=== PATIENT | female | born 1955 | race American Indian/Alaskan Native ===

== ENCOUNTER 2016-08-09 15:37 | Outpatient (CLI) | payer BC, OTHER | END 2016-08-09 15:38 | disposition home or self-care (01) | LOC: LABHHL 15:37 | PROVIDERS: ATTEND Surgery | DX: N63 Unspecified lump in breast (principal) | CPT/HCPCS: 88305; 88361 ==

== ENCOUNTER 2016-08-15 14:24 | Outpatient (CLI) | payer BC ==
--- NOTE | 2016-08-16 15:48 | Magnetic Resonance Report ---
BILATERAL BREAST MRI WITHOUT AND WITH CONTRAST: 08/15/16 14:24:00 CLINICAL: Status post right lumpectomy. Status post ultrasound guided needle biopsy of a right breast mass at 10 o'clock 3 cm from the nipple on 08/08/16 with pathologic diagnosis of invasive mammary carcinoma, [place] histologic grade 3 of 3. COMPARISON:08/08/16 Bilateral Mammogram. TECHNIQUE: Axial 1.0-mm T1 without, axial high resolution 2.0-mm T2 and axial 1.0-mm dynamic Vibrant high-resolution postcontrast T1 fat saturation sequences on a 1.5 Charissa magnet. The examination was performed with an 8 channel dedicated Sentin[place] breast coil. Post processing with CAD and subtraction was performed on an Nuxe[employer] workstation. 15.0 cc of Multihance was injected without incident for the contrast portion of the exam. Consent was obtained prior to the administration of the contrast. FINDINGS: Right: Minimal background parenchymal enhancement. Status post right partial mastectomy. An oval 3.2 x 2.8 x 2.4 cm upper outer mass 5.1 cm from the nipple corresponds to the recently biopsied mass. It demonstrates heterogeneous enhancement with mixed kinetics and 51% type III washout. The mass has a mildly irregular margin and contains a biopsy clip. No other mass or cyst enhancement of the right breast. Moderate skin thickening of the right breast. No suspicious right axillary or right internal mammary lymph nodes. Left: Minimal background parenchymal enhancement. An island of fibroglandular structures in the upper inner quadrant 9.8 cm from the nipple measures approximately 4.5 x 2.5 x 1.5 cm. It demonstrates heterogeneous enhancement with mixed kinetics and 8% type III washout. This island of fibroglandular structures correlates with a mammographic asymmetry which has been stable since 2013. No suspicious enhancement and no mass of the left breast. No suspicious left axillary or left internal mammary lymph nodes. IMPRESSION: 1. A 3.2 cm known recurrent right breast cancer. 2. No suspicious lymph nodes. 3. Negative left breast. RIGHT BI-RADS 6 -- Known Cancer LEFT BI-RADS 1 -- Negative
== END 2016-08-15 14:25 | disposition home or self-care (01) ==
LOC: SPVIMAG 14:24
PROVIDERS: ATTEND Surgery
DX: C50.911 Malignant neoplasm of unspecified site of right female breast (principal); N63 Unspecified lump in breast; Z90.11 Acquired absence of right breast and nipple; Z98.890 Other specified postprocedural states
CPT/HCPCS: 0159T; A9577; C8908; 77059

== ENCOUNTER 2016-10-09 15:36 | Outpatient (CLI) | payer BC | END 2016-10-09 15:37 | disposition home or self-care (01) | LOC: LABHHL 15:36 | PROVIDERS: ATTEND Surgery | DX: C50.411 Malignant neoplasm of upper-outer quadrant of right female breast (principal) | CPT/HCPCS: 88305 ==

== ENCOUNTER 2017-03-26 10:25 | Observation (INO) | payer BC, OTHER ==
--- NOTE | 2017-03-25 10:49 | Anesthesia Consultation ---
Anesthesia Consult and Med Hx Date of service: 03/25/17 - Airway Anesthetic Teeth Evaluation: Good ROM Head & Neck: Adequate Mental/Hyoid Distance: Adequate Mallampati Class: Class II Intubation Access Assessment: Probably Good - Pulmonary Exam CTA: Yes - Cardiac Exam Cardiac Exam: RRR - Pre-Operative Health Status ASA Pre-Surgery Classification: ASA2 Proposed Anesthetic Plan: General Nerve Block: PEC - Pulmonary Hx Smoking: No Hx Asthma: No Hx Sleep Apnea: No - Cardiovascular System Hx Hypertension: No (high cholesterol) Hx Heart Attack/AMI: No Hx Angina: No (hx of chest palpitation (20years ago)) Hx Heart Murmur: Yes - Central Nervous System Hx Seizures: No CVA: No Hx Psychiatric Problems: No - Gastrointestinal Hx Gastroesophageal Reflux Disease: No - Endocrine Hx Renal Disease: No Hx Liver Disease: No Hx Non-Insulin Dependent Diabetes: No - Hematic Hx Anemia: Yes Hx Sickle Cell Disease: No - Other Systems Hx Cancer: Yes
[~2017-03-26 10:25] MED LIST: NEURONTIN PO NR; PEPCID PO NR; SUBLIMAZE IV NR; VERSED IV NR
[2017-03-26] MEDS: NACL 0.9% 1000 ML 1,000 ML IV SCH ×2 (11:00→15:08)
[2017-03-26] MEDS ORDERED: ANCEF/STERILE WATER 2 GM/20 ML IV NR (13:00)
[2017-03-26] MEDS ORDERED: DIPRIVAN 10 MG/ML IV ONE (13:07)
[2017-03-26] MEDS ORDERED: DILAUDID ONE ×2 (13:08→20:06)
[2017-03-26] MEDS ORDERED: ANCEF ONE (13:18)
[2017-03-26] MEDS ORDERED: BACITRACIN ONE (13:19)
[2017-03-26] MEDS ORDERED: GARAMYCIN ONE (13:21)
[2017-03-26] MEDS ORDERED: METHYLENE BLUE ONE (14:10)
[2017-03-26] MEDS ORDERED: MARCAINE-EPI/PF 0.5%-1:200,000 INFILTRATI ONE (14:39)
[2017-03-26] MEDS ORDERED: DECADRON ONE ×2 (14:39→16:27)
--- NOTE | 2017-03-26 14:42 | Anesthesia Day of Surgery ---
Anesthesia Day of Surgery - Day of Surgery Patient Examined: Yes Patient H&P Reviewed: Yes Patient is NPO: Yes
[2017-03-26] MEDS ORDERED: ZEMURON IV ONE (16:03)
[2017-03-26] MEDS ORDERED: XYLOCAINE MPF 2% ONE (16:03)
[2017-03-26] MEDS ORDERED: ANCEF IV ONE (16:44)
[2017-03-26] MEDS ORDERED: GARAMYCIN IV ONE (16:44)
[2017-03-26] MEDS ORDERED: BACITRACIN IR ONE (16:44)
[2017-03-26] MEDS ORDERED: WATER FOR IRRIG STERILE IR ONE (16:44)
[2017-03-26] MEDS ORDERED: NACL 0.9% 1000 ML IR ONE (16:44)
[2017-03-26] MEDS ORDERED: BENADRYL PO PRN (17:17)
[2017-03-26] MEDS ORDERED: REGLAN PO PRN (17:17)
[2017-03-26] MEDS ORDERED: TYLENOL PO PRN (17:17)
[2017-03-26] MEDS ORDERED: SODIUM CHLORIDE FLUSH SYRINGE 10 ML IV PRN (17:17)
[2017-03-26] MEDS ORDERED: ZOFRAN IV PRN (17:17)
--- NOTE | 2017-03-26 17:17 | Post Operative Note ---
Pre-op diagnosis: breast cancer Post-op diagnosis: same Findings: bilateral mastectomy defects Procedure: bilateral breast reconstruction with tissue expanders and biologic mesh Anesthesia: GETA Surgeon: RIO GOINS Estimated blood loss: minimal Pathology: none Condition: stable Disposition: PACU
[2017-03-26] MEDS ORDERED: LACTATED RINGERS 1,000 ML IV SCH (18:00)
[2017-03-26] MEDS ORDERED: ZOFRAN ONE (18:39)
--- NOTE | 2017-03-26 18:44 | Operative Report ---
Operative Report Operative Report: Date of service: 03/26/2017 Preoperative diagnosis: Recurrent right breast cancer of the upper outer Postoperative diagnosis: Same Procedure: Right total mastectomy and attempted sentinel lymph node biopsy Surgeon: Rhonda Myers M.D. Asst.: Mariah Nguyen MD Anesthesia: Gen. Findings: Right breast clip present in radiograph total mastectomy specimen. Attempted SLN biopsy with no radioisotope uptake or methylene blue dye, no axillary fat contents present Complications: None Drains: per plastic surgery Estimated blood loss: Minimal Disposition: OR for bilateral tissue geodetic survey director placement Indications for operative procedure: This is a 61-year-old -[place] lady with recurrent stage II right breast cancer. Patient recently completed neoadjuvant chemotherapy. Patient wished to proceed with a right total mastectomy and sentinel lymph node staging and possible axillary lymph node dissection and prophylactic left total mastectomy. Patient wished to proceed with the above procedure. Patient wished to proceed with immediate plastic reconstructive surgery. Procedure in detail: Anesthesia placed bilateral pectoral muscle block prior to going to the operating room. The patient was taken to the operating room and was placed supine. Gen. anesthesia was administered. The right nipple was injected with radioisotope and 1 mL of methylene blue dye mixed with 1 mL of saline. Bilateral breast and chest were prepped and draped in the normal sterile operative fashion. Timeout was performed. The nipple was massaged for 10 minutes. No uptake was noted within the right axilla from the gamma probe. Typical mastectomy incision markings were made with right mastectomy incision including prior surgical incision of known breast cancer recurrence. Attention was first taken towards the left breast. A skin incision was made with a 10 blade knife and dissection taken down to the subcutaneous tissues. First began raising of the superior flap to the level of the clavicle superiorly and posteriorly to the pectoralis muscle. Followed by raising of the medial flap to the level of the sternum and posteriorly to the pectoralis muscle. Followed by raising of the lateral flap to the level of the latissimus dorsi muscle and taken down posteriorly. Followed by raising of the inferior flap to the level of the inframammary fold taken posterior to the pectoralis muscle. The mastectomy/breast was removed from the pectoralis muscle without incident. The specimen was appropriately marked and sent to pathology. Hemostasis was obtained with the bovie cautery. Dr. Hand then proceeded with tissue geodetic survey director placement. Attention was then taken towards the right breast. A skin incision was made with a 10 blade knife and dissection taken down to the subcutaneous tissues. First began raising of the superior flap to the level of the clavicle superiorly and posteriorly to the pectoralis muscle. Followed by raising of the medial flap to the level of the sternum and posteriorly to the pectoralis muscle. Followed by raising of the lateral flap to the level of the latissimus dorsi muscle and taken down posteriorly. The gamma probe was inserted into the axilla and no counts were noted. The axilla was completely examined with dissection taken down posteiorly to the serratus muscle and latissmus muscle with scar noted from prior surgery and no axillary fat or axillary contents present. It was then decided not proceed with further dissection. Patient will recieve adjuvant XRT. Then proceeded with raising of the inferior flap to the level of the inframammary fold taken posterior to the pectoralis muscle. The mastectomy/breast was removed from the pectoralis muscle without incident. The specimen was appropriately marked and sent to radiology with findings of breast clip present and sent to pathology. Hemostasis was obtained with the bovie cautery. Dr. Hand then proceeded with tissue geodetic survey director placement.
[2017-03-26] MEDS ORDERED: LACTATED RINGERS 1,000 ML ONE (19:02)
[2017-03-26] MEDS: DILAUDID IV PRN ×2 (19:55→20:15)
--- NOTE | 2017-03-26 19:59 | Operative Report ---
PREOPERATIVE DIAGNOSIS: History of right-sided breast cancer. POSTOPERATIVE DIAGNOSIS: History of right-sided breast cancer. PROCEDURE: 1. Bilateral breast reconstruction using tissue armored car guard and driver in the prepectoral pocket, CPT code 07376-12. 2. Implantation of biologic mesh for bilateral breast reconstruction, CPT code 78046-33. SURGEON: Duran Jones MD. MACHINE BOOKKEEPER: None. ANESTHESIA: General. OPERATIVE INDICATIONS: The patient is a 61-year-old female who presented to my office for consultation for breast reconstruction. She is planning on undergoing a bilateral mastectomy for an invasive right breast cancer and that was to be done with Dr. Myers. She is interested in breast reconstruction. Risks and benefits were discussed with the patient and she agreed to move forward with a tissue armored car guard and driver reconstruction. OPERATIVE DETAILS: After informed consent was obtained, the patient was brought to the operating room and placed supine on the operating table. Preoperative antibiotics and general anesthesia were administered. Dr. Myers then had the patient prepped and draped in usual sterile fashion and at that point, she commenced with her portion of the operation. When she was done with her portion of the operation, I entered the room and examined the patient. On the left side, she had mastectomy defect. The right side, Dr. Myers was still continuing. I measured her base width and then picked an appropriate sized tissue armored car guard and driver. On the side table, I then prepared the reconstructive implants. I took a perforated pliable FlexHD biologic mesh and sewed that to the inferior border of both of the tissue expanders using 2-0 PDS sutures. I left the air in placed initially. On the left side, we used a [employer] ARTOURA ultra high profile 455 mL tissue armored car guard and driver was serial number [id number]. On the right, we used the same implant with serial number [id number]. On the left, we used an 11 x 20 cm pliable shaped perforated medium piece of FlexHD with serial number [id number] and on the right we used the same piece of tissue, but with serial number [id number]. Starting on the left side, the armored car guard and driver with a FlexHD was laid on top of the pectoralis major muscle and then secured in place at all three suture tabs and along the inferior border using the mesh was secured to the pectoralis major muscle. It was then irrigated with Betadine and then triple antibiotic irrigation. A 19-Namibian Winston drain was placed for drainage and then the skin was redraped and closed using 3-0 Vicryl deep dermal and then a running 2-0 Stratafix barbed suture. Once Dr. Myers was done with the right side, I then proceeded with reconstruction on the right. The armored car guard and driver mesh implant was placed on top of the pectoralis major and sewn in place using 2-0 PDS sutures along the inferior, medial and lateral borders. It was then irrigated with Betadine and triple antibiotic irrigation. A 19-Namibian Winston drain was left in the prepectoral space. A 15-Namibian Winston drain was placed into the right axillary space where the lymph node dissection had been performed. On the right side, more skin had been removed and so, I did have to deflate all of the air out of the tissue armored car guard and driver in order to get the skin closed. On the left side, we were able to leave the air in the armored car guard and driver. The skin on the right was then closed in the same fashion using 3-0 Vicryl interrupted for the deeper layers and then 3-0 Monocryl Stratafix barbed suture on the skin. All the drains were secured in place with silk ties. Dermabond was applied to the incisions. The patient was placed in a breast binder. She tolerated the procedure well and was transferred to PACU in stable condition. FINDINGS: Bilateral mastectomy defects. DRAINS: Left side 19-Namibian Winston, right side 19-Namibian and 15-Namibian Winston. COMPLICATIONS: None. SPECIMENS: None. JOB# [id number] Kylie/KAITLYN
[2017-03-26] MEDS: PERCOCET 5/325 PO PRN (21:47)
[2017-03-26] MEDS ORDERED: COLACE PO SCH (22:00)
[2017-03-26] MEDS: ANCEF/NS 1 GM/50 ML 1 GM/50 ML BAG IV SCH (23:32)
[2017-03-27 04:54] VITALS: BP 134/78
[2017-03-27] MEDS: PERCOCET 5/325 PO PRN (05:15)
--- NOTE | 2017-03-27 08:00 | XRay Report ---
Surgical specimen radiograph: History: Right breast cancer. Findings: These biopsy clip identified within the specimen. Impression: Findings as detailed above.
[2017-03-27] MEDS: ANCEF/NS 1 GM/50 ML 1 GM/50 ML BAG IV SCH (08:02)
--- NOTE | 2017-03-27 08:19 | Progress Note ---
Assessment and Plan This is a 61 year old lady with recurrent right breast cancer s/p right total mastectomy and attempted SLNB and left prophylactic total mastectomy and immediate tissue english drawer placement. 1. Patient's pain in good control. 2. Bilateral chest incisions healing well. 3. Lorna drain education. 4. D/C planning for today. Subjective Date of service: 03/27/17 Principal diagnosis: Recurrent right breast cancer Interval history: This is a 61 year old lady with recurrent right breast cancer s/p right total mastectomy and attempted SLNB and left prophylactic total mastectomy and immediate tissue english drawer placement. No acute events overnight. Objective - Constitutional Vitals: Vital Signs - 12hr 03/26/17 03/27/17 03/27/17 21:00 00:00 04:40 Temperature 98.7 F 98.5 F 98.1 F Pulse Rate 88 87 84 Respiratory 18 18 Rate Blood Pressure 141/88 Blood Pressure 127/81 134/78 [Left] O2 Sat by Pulse 94 100 Oximetry General appearance: Present: no acute distress - EENT Eyes: PERRL ENT: hearing intact, clear oral mucosa Ears: bilateral: normal - Neck Neck: supple, normal ROM - Respiratory Respiratory effort: normal Respiratory: bilateral: CTA - Breasts Breasts: other (bilateral chest incisions healing well; no fluid collection; skin well perfused; LORNA bulbs to suction) - Cardiovascular Rhythm: regular Extremities: no ischemia, pulses intact, pulses symmetrical, No edema, normal temperature, normal color, Full ROM - Gastrointestinal General gastrointestinal: Present: soft, non-tender, non-distended Rectal Exam: deferred - Genitourinary Female genitourinary: deferred - Integumentary Integumentary: clear, warm, dry - Musculoskeletal Musculoskeletal: strength equal bilaterally - Neurologic Neurologic: CNII-XII intact, moves all extremities - Psychiatric Psychiatric: appropriate mood/affect, intact judgment & insight, memory intact, cooperative
[2017-03-27] MEDS ORDERED: Fluarix Quad 2017-2018(36 MOS+) IM ONE (12:00)
== END 2017-03-27 10:55 | disposition home or self-care (01) ==
LOC: OR 10:25 → OB 17:17
PROVIDERS: ADMIT Plastic Surgery; ATTEND Plastic Surgery
DX: C50.411 Malignant neoplasm of upper-outer quadrant of right female breast (principal); Z90.710 Acquired absence of both cervix and uterus; Z79.899 Other long term (current) drug therapy
CPT/HCPCS: 15777; 19303; 19357; 64450; 76098; 78801; 88307; 96365; 96375; 96376; A9541; C1789; G0378; J0690; J1100; J1170; J1580; J2250; J2405; J2704; J3010; J7030; J7120; Q4128; Q9968; 90686

== ENCOUNTER 2017-12-05 09:20 | Day surgery (SDC) | payer BC ==
[~2017-12-05 09:20] MED LIST changes: +LACTATED RINGERS 1,000 ML IV SCH; -NEURONTIN PO NR; -PEPCID PO NR; -SUBLIMAZE IV NR
--- NOTE | 2017-12-05 10:26 | Anesthesia Day of Surgery ---
Anesthesia Day of Surgery - Day of Surgery Patient Examined: Yes Patient H&P Reviewed: Yes Patient is NPO: Yes
[2017-12-05] MEDS ORDERED: DILAUDID IV PRN (10:27)
[2017-12-05] MEDS ORDERED: ZOFRAN IV PRN ×2 (10:27→15:01)
--- NOTE | 2017-12-05 10:27 | Anesthesia Consultation ---
Anesthesia Consult and Med Hx Date of service: 12/05/17 - Airway Anesthetic Teeth Evaluation: Good ROM Head & Neck: Adequate Mental/Hyoid Distance: Adequate Mallampati Class: Class III Intubation Access Assessment: Probably Good - Pulmonary Exam CTA: Yes - Cardiac Exam Cardiac Exam: RRR - Pre-Operative Health Status ASA Pre-Surgery Classification: ASA3 Proposed Anesthetic Plan: General - Pulmonary Hx Smoking: No Hx Asthma: No Hx Pneumonia: No Hx Sleep Apnea: No - Cardiovascular System Hx Hypertension: No (high cholesterol) Hx Heart Attack/AMI: No Hx Angina: No (hx of chest palpitation (20years ago)) Hx Cardia Arrhythmia: Yes (RBBB) Hx Heart Murmur: Yes (not appreciated on examination) - Central Nervous System Hx Seizures: No CVA: No Hx Psychiatric Problems: No - Gastrointestinal Hx Gastroesophageal Reflux Disease: No - Endocrine Hx Renal Disease: No Hx End Stage Renal Disease: No Hx Liver Disease: No Hx Non-Insulin Dependent Diabetes: No - Hematic Hx Anemia: Yes Hx Sickle Cell Disease: No - Other Systems Hx Cancer: Yes
[2017-12-05] MEDS ORDERED: VERSED IV NR (10:35)
[2017-12-05] MEDS ORDERED: LACTATED RINGERS 1,000 ML IV SCH (11:00)
[2017-12-05] MEDS ORDERED: XYLOCAINE 1% 20 mL ONE (11:19)
[2017-12-05] MEDS ORDERED: GARAMYCIN ONE (11:19)
[2017-12-05] MEDS ORDERED: MARCAINE 0.5% 30 ML INFILTRATI ONE (11:19)
[2017-12-05] MEDS ORDERED: ANCEF/STERILE WATER 2 GM/20 ML 2 GM/20 ML SYRINGE IV ONE (11:20)
[2017-12-05] MEDS ORDERED: BACITRACIN ONE (11:20)
[2017-12-05] MEDS ORDERED: BACITRACIN TP NR (11:26)
[2017-12-05] MEDS ORDERED: DIPRIVAN 10 MG/ML IV ONE (11:38)
[2017-12-05] MEDS ORDERED: XYLOCAINE MPF 2% ONE (11:38)
[2017-12-05] MEDS ORDERED: ZEMURON IV ONE (11:38)
[2017-12-05] MEDS ORDERED: SUBLIMAZE ONE (11:38)
[2017-12-05] MEDS ORDERED: ANCEF ONE (12:27)
[2017-12-05] MEDS ORDERED: DECADRON ONE (12:28)
[2017-12-05] MEDS ORDERED: ZOFRAN ONE (12:28)
[2017-12-05] MEDS ORDERED: NACL 0.9% 50 ML ONE (12:34)
[2017-12-05] MEDS ORDERED: NACL 0.45% 1000 ML 1,000 ML IV ONE (12:38)
[2017-12-05] MEDS ORDERED: ADRENALIN ONE ×2 (12:38→12:44)
[2017-12-05] MEDS ORDERED: NACL 0.9% 1000 ML 1,000 ML ONE (12:45)
--- NOTE | 2017-12-05 14:45 | Post Operative Note ---
Pre-op diagnosis: history of breast cancer Post-op diagnosis: same Findings: intact expanders Procedure: exchange bilateral expanders for breast implants, fat transfer from abdomen to breasts, GRADY Anesthesia: GETA Surgeon: RIO GOINS Estimated blood loss: minimal Pathology: none Condition: stable Disposition: PACU
[2017-12-05] MEDS: DILAUDID IV PRN ×4 (15:04→15:40)
--- NOTE | 2017-12-05 15:52 | Operative Report ---
PREOPERATIVE DIAGNOSIS: Personal history of breast cancer. POSTOPERATIVE DIAGNOSIS: Personal history of breast cancer. PROCEDURES: 1. Bilateral breast reconstruction with removal of tissue expanders and replacement with permanent implants, CPT CODE 81094-10. 2. Bilateral breast reconstruction using other technique, fat transfer, pocket manipulation and chest wall contouring, CPT CODE 80909-61. 3. Harvesting removal of tissue for graft, fat transfer, CPT CODE 70790. 4. Application of negative pressure wound VAC device, GRADY to bilateral breasts for postoperative wound healing, CPT CODE SURGEON: Duran Jones MD [employer] APPLICATION DEVELOPER: None. ANESTHESIA: General. OPERATIVE INDICATIONS: This is a 62-year-old female with personal history of breast cancer, who had undergone bilateral mastectomies and tissue grant coordinator reconstruction. She now presented for grant coordinator to implant exchange, contouring of the lateral breast, fat transfer and pocket manipulation. Risks and benefits of surgery discussed with the patient. She agreed. DESCRIPTION OF PROCEDURE: After informed consent was obtained, the patient was brought to the operating room and placed supine on the operating room table. Preoperative antibiotics and general anesthesia were administered. The patient was prepped and draped in usual sterile fashion and timeout was called verifying the patient and the operation being performed. Preoperative markings were made in the holding area and we began by performing some liposuction of the anterior abdomen for harvesting. Two small stab incisions were made in the lateral aspect of the umbilicus and tumescent fluid was injected into the anterior abdominal tissue. Also tumescent fluid was injected into the lateral area where there was some contouring was required. We allowed 10-15 minutes for the epinephrine to take effect and then we used the Lipografter harvesting system with a 2.7 mm harvesting cannula to harvest fat from the anterior abdominal wall and also the lateral breast roll area. 250 mL bags were filled with Lipografter and then were allowed to decant by gravity at which point excess fluid was drained and then the residual fat was then used for transfer later in the procedure. When we are done with that, we then turned our attention to the expanders. Starting on the right side, previous incision was opened. Dissection was carried down to the capsule and flaps were elevated superiorly and inferiorly. We then incised the capsule puncture of the grant coordinator and removed the fluid. The grant coordinator was removed intact. Same procedure was performed on the left. Additionally, she had a thickened scar from some delayed wound healing on that side, so I excised the scar on the left side and same maneuvers were performed to remove the expanders. We then placed the temporary sizer into the pocket and assessed the pockets. The pockets were still too tight. On the right side expansion was needed, so capsulotomy was performed circumferentially and then anteriorly in order to open up the pocket and then on the left side the pocket was somewhat tight, but also there was displacement laterally, so capsulotomy was performed medially and then capsulorrhaphy using cautery was done laterally to try to tighten up the capsule and shift the implant medially. Sizers were then placed back into the pocket and I accessed her for size and symmetry and look very good at this point. So at this point with the sizers in place and the contouring the lateral breast border done with liposuction we proceeded with fat transfer. A Lipografter system was used to transfer fat using 2 different size cannulas and replace the majority of the fat in the superior medial aspect of the breast in order to transition from the chest wall and still in the mastectomy defects. We then feathered the rest of the fat throughout the skin flaps to thicken them up as they were rather thin and total of 120 mL was injected on the right breast and 120 mL on the left for a total of 240 mL of fat transfer. Once this was done, we then proceeded with placement of the permanent implants. The sizers were removed. The pockets were irrigated with triple antibiotic and Betadine. All residual fat that was in the pocket was removed. New gloves were placed and two sterile implants were open. Both of these were [place] memory gel, smooth, round ultra high profile 480 mL. On the right, we placed an implant with serial #[id number] and on the left, serial #[id number]. Both these were placed using sterile technique and then closed the capsule with 3-0 Vicryl interrupted sutures and closed the skin with 3-0 Monocryl deep dermals and a 3-0 Monocryl barbed suture in a subcuticular fashion. Small amount of lipoaspirate was then injected just the knee. The scars for additional support and help with wound heal with scar maturation. We then applied GRADY negative pressure wound VAC device for both breasts for postoperative wound healing. Her access incisions for the liposuction were all closed with 5-0 fast gut suture. She was placed into a breast binder for some mild compression. The abdominal incisions were covered with 2 x 2 and Tegaderm. She tolerated the procedure well, awakened from general anesthesia, transferred to PACU in stable condition. Estimated blood loss less than 50 mL. Complications none. Findings intact bilateral expanders and bilateral mastectomy defects. JOB# [id number] [facility]
[2017-12-05 16:46] VITALS: BP 131/91
== END 2017-12-05 17:24 | disposition home or self-care (01) ==
LOC: OR 09:20
PROVIDERS: ATTEND Plastic Surgery
DX: Z42.1 Encounter for breast reconstruction following mastectomy (principal); E78.00 Pure hypercholesterolemia, unspecified; K21.9 Gastro-esophageal reflux disease without esophagitis; I45.10 Unspecified right bundle-branch block; Z90.13 Acquired absence of bilateral breasts and nipples; Z90.711 Acquired absence of uterus with remaining cervical stump; Z90.49 Acquired absence of other specified parts of digestive tract; Z85.3 Personal history of malignant neoplasm of breast; Z98.890 Other specified postprocedural states
CPT/HCPCS: 11970; 19366; 20926; C1789; J0171; J0690; J1100; J1170; J1580; J2250; J2405; J2704; J3010; J7030; J7120